=== PATIENT | male | born 1995 | race Caucasian/White ===

== ENCOUNTER 2016-12-23 01:55 | Emergency (ER) | payer OTHER ==
[2016-12-23] MEDS ORDERED: IBUPROFEN 200 MG TAB PO ONE (02:47)
--- NOTE | 2016-12-23 02:50 | EDPHY ---
H & P Stated Complaint: right arm pain, scratches noted, pt was hit by his dog Time Seen by Provider: 12/23/16 02:43 HPI/ROS: Chief complaint: Right arm injury History of present illness: This is a 21-year-old male who presents to the emergency department for a right arm injury. Patient reports just prior to arrival his dog got upset and bit his right arm. He reports the dog is healthy. He has has sustained abrasions to the arm. However he has developed significant swelling and pain in his right wrist and elbow. It hurts to move these regions. He denies associated signs or symptoms including no abnormal coolness or paresthesias in the arm. He denies other injuries. - Personal History Current Tetanus Diphtheria and Acellular Pertussis (TDAP): Yes Tetanus Vaccine Date: 2013 - Medical/Surgical History Hx Asthma: No Hx Chronic Respiratory Disease: No Hx Diabetes: No Hx Cardiac Disease: No Hx Renal Disease: No Hx Cirrhosis: No Hx Alcoholism: No Hx HIV/AIDS: No Hx Splenectomy or Spleen Trauma: No Other PMH: tubes in ears - Social History Smoking Status: Current every day smoker - Physical Exam Exam: General: Alert, nontoxic Skin: Superficial abrasions to the right arm, no repairable lesions Musculoskeletal: Diffuse edema to the right wrist and elbow. The wrist and elbow are diffusely tender. It hurts to move them although he still can. The digits of the hand mid forearm and upper arm are nontender. Muscle compartments of the upper extremity are unremarkable. Vascular: Radial pulses 2+. Capillary refill brisk in the right hand. Neurologic: Sensation intact in the right hand. Constitutional: Initial Vital Signs Temperature (C) 36.8 C 12/23/16 02:05 Heart Rate 112 H 12/23/16 02:05 Respiratory Rate 18 12/23/16 02:05 Blood Pressure 125/87 H 12/23/16 02:05 O2 Sat (%) 95 12/23/16 02:05 O2 Delivery Mode Room Air Allergies/Adverse Reactions: No Known Allergies Allergy (Unverified 12/23/16 02:05) Home Medications: Medication Instructions Recorded NK [No Known Home Meds] 12/23/16 Medical Decision Making - Diagnostics Imaging Results: Imaging Impressions Elbow X-Ray 12/23/16 02:40 Impression: Bony fragmentation of the lateral epicondyle compatible with prior trauma, without acute injury.. Wrist X-Ray 12/23/16 02:40 Impression: Negative right wrist radiographs. Imaging: I viewed and interpreted images myself Procedures: Procedure: Splint placement. A long-arm splint was applied. After application of the splint I returned and re-examined the patient. The splint was adequately immobilizing the joint and distal to the splint the patient's circulation and sensation was intact. ED Course/Re-evaluation: Patient seen under the supervision of my secondary supervising physician Dr. Alphonso Lo. Patient presents to emergency department for right arm injury. The arm is neurovascularly intact. X-rays are reviewed. I am concerned for an injury to the elbow, he does state he has injuries elbow previously. However I am concerned for an anterior fat pad sign. He is splinted. He is discharged home. Home care is discussed. Referred to Orthopedics for recheck. Police have been notified of the animal bite. - Data Points Medications Given: Discontinued Medications Hydrocodone Bitart/Acetaminophen (Orwell 5/325mg Prepack#6) 1 btl TAKEHOME EDNOW ONE Stop: 12/23/16 03:07 Last Admin: 12/23/16 03:14 Dose: 1 btl Ibuprofen (Motrin) 800 mg PO EDNOW ONE Stop: 12/23/16 02:48 Last Admin: 12/23/16 03:00 Dose: 800 mg Departure - Departure Disposition: Home, Routine, Self-Care Clinical Impression: Arm abrasion Qualifiers: Encounter type: initial encounter Laterality: right Qualified Code(s): S40.811A - Abrasion of right upper arm, initial encounter Elbow fracture, left Qualifiers: Encounter type: initial encounter Fracture type: closed Qualified Code(s): S42.402A - Unspecified fracture of lower end of left humerus, initial encounter for closed fracture Condition: Good Instructions: Hydrocodone/Acetaminophen (By mouth), Elbow Fracture (ED), Abrasion (ED), Acute Wounds (ED) Additional Instructions: Follow-up with an orthopedic doctor for recheck Use ibuprofen 600 mg 3 times a day for the next 2-3 days for symptom control Ice the injury, 20 minutes on, 3 times daily for the next 3 days Keep wounds clean with soap and water If symptoms worsen or new symptoms develop return to the emergency room for recheck Referrals: Jones Hill MD [Medical Doctor] - As per Instructions
[2016-12-23] MEDS ORDERED: HYDROCOD/APAP 5/325 PREPACK#6 BTL TAKEHOME ONE (03:06)
[2016-12-23 03:53] VITALS: BP 133/75; PULSE 98; RESP 18; TEMP 97.9; O2SAT 94
== END 2016-12-23 03:52 | disposition home or self-care (01) ==
DX: S42.402A Unspecified fracture of lower end of left humerus, initial encounter for closed fracture (principal); S40.811A Abrasion of right upper arm, initial encounter; F17.200 Nicotine dependence, unspecified, uncomplicated; W54.0XXA Bitten by dog, initial encounter; Y99.8 Other external cause status
CPT/HCPCS: A4565